=== PATIENT | female | born 1945 | race Two or more races ===

== ENCOUNTER → 2018-05-20 18:44 | Outpatient (CLI) | payer MEDICARE, SELFPAY ==
--- OUTSIDE RECORDS SUMMARY | 2018-07-02 16:51 | XMS RPT_ITS ---
:1945 Author Organization OHIP Care Team Providers Name Role Phone Stencel, Tootie Attending Unavailable [facility] Unavailable Stencel, Tootie Admitting Unavailable Furness, Prosper T Attending Unavailable Manning, Rye Primary Care Unavailable [facility], [facility] Primary Care Unavailable Furness, Prosper Jackson Admitting Unavailable Furness, Prosper T Attending Unavailable Stencel, Tootie Attending Unavailable Manning, Rye Primary Care Unavailable Stencel, Tootie Admitting Unavailable Stencel, Tootie Attending Unavailable Stencel, Tootie Primary Care Unavailable Stencel, Tootie Attending Unavailable Manning, [facility] Primary Care Unavailable Wood, Lisbeth L Attending Unavailable Wood, Lisbeth L Admitting Unavailable Stencel, Tootie Primary Care Unavailable Stencel, Tootie Admitting Unavailable Stencel, Tootie Attending Unavailable Stencel, Tootie Primary Care Unavailable Stencel, Tootie Primary Care Unavailable Wood, Lisbeth L Admitting Unavailable Wood, Lisbeth L Attending Unavailable NakulAshtyn Attending Unavailable NakulAshtyn Referring Unavailable STENCEL, TOOTIE Primary Care Unavailable PROBLEMS PROBLEMS DATE TYPE CONDITION / CODE ATTENDING STATUS SOURCE 03/23/2018 Admitting Dysuria / NA Active [facility] R30.0(ICD-10[facility] [place] 03/23/2018 Admitting Unspecified NA Active [facility]oids / [place] K64.9(ICD-10) Repository 03/23/2018 Admitting Hypokalemia / NA [facility] Diagnosis E87.6(ICD-10) [place] PROCEDURES PROCEDURES No Procedure Records FoundRESULTS RESULTS Observed: 05/20/2018 Status: F Source: MICHAEL CULTURE, URINE 11:15 AM [facility] [place] Urine Culture Below infection level. ORGANISM 1: Mixed Gram Positive Organisms [place] Count 1000-10,000 Performed By: #### M100.0650 #### Michael [facility] [place], [address] CT ABDOMEN/PELVIS WITHOUT Observed: 03/23/2018 Status: F Source: [employer] CONTRAST 12:16 PM SYSTEM ([place]) REPOSITORY EXAM: CT ABDOMEN/PELVIS WITHOUT CONTRAST CLINICAL INDICATION: Painful urination TECHNIQUE: Unenhanced noncontrasted CT of the abdomen and pelvis with multiple sequential images obtained along the axial plane at 3.0 mm slice width from the level of the lung bases through to the pubic symphysis under urolithiasis protocol. Images were reconstructed and assessed in the coronal plane. Dose reduction techniques were achieved by using automated exposure control and/or adjustment of mA and/or kV according to patient size and/or use of iterative reconstruction technique. COMPARISON STUDY: None Dose reduction techniques were achieved by using automated exposure control and/or adjustment of mA and/or kV according to patient size and/or use of iterative reconstruction technique. FINDINGS: Evaluation of visceral organs is limited secondary to lack of intravenous contrast. Lung bases demonstrate lingular and right middle lobe atelectasis or minimal infiltrate. Linear scarring within the bilateral lung bases. No effusions. Small hiatal hernia. The kidneys are within normal limits with no evidence of hydronephrosis, hydroureter, or perinephric stranding. No pathological calcifications are identified within the kidneys or ureters. The bladder is within normal limits with no evidence of calculi. There is no evidence of intraperitoneal free air. The liver, gallbladder, spleen, and pancreas are within normal limits with no evidence of gross focal lesions. The adrenal glands are within normal limits with no evidence of mass lesions. The small intestine and colon are of normal caliber and are nonobstructive. There is no evidence of inflammatory changes around the bowel loops. Few scattered colonic diverticula but no CT evidence for acute diverticulitis. The appendix is not positively identified, however, there is no evidence for pericecal inflammatory changes identified to suggest acute appendicitis. Suspect hysterectomy changes. No pelvic free fluid is identified. The abdominal aorta is of normal caliber with no evidence of aneurysm. IMPRESSION: 1. No evidence of urolithiasis - no evidence of hydronephrosis/hydroureter/perinephric stranding. 2. Colonic diverticulosis but no CT evidence for acute radiculitis. 3. Suspect prior hysterectomy. 4. Minimal lingular and right middle lobe atelectasis or infiltrate. CBC Collected: 03/23/2018 Status: F Source: [employer] 12:04 PM [place] ([place] REPOS[place] TYPE CODE TESTS RESULT OUT OF REFERENCE UNITS RANGE LAB WBC 3.6-11.0 /cmm WBC COUNT 8.9 LAB RBC 4.0-5.4 /cmm RBC COUNT 4.55 LAB HGB 12.0-16.0 G/DL HEMOGLOBIN 14.1 LAB HCT 36.0-48.0 % HEMATOCRIT 41.5 LAB MCV 80.0-100.0 FL MCV 91.2 LAB MCH 26.0-35.0 PG MCH 31.0 LAB MCHC 27.0-37.0 G/DL MCHC 34.0 LAB RDW 11.5-14.5 % RDW 13.1 LAB PLTC 130.0-400.0 /cmm PLATELET COUNT 331 LAB MPV 7.4-11.0 FL MPV 7.5 LAB DTYPE % DTYPE AUTO DIFF LAB NEUT 37.0-75.0 % High NEUTROPHIL 82.3 LAB LYMP 20.0-55.0 % Low LYMPHOCYTE 11.0 LAB AOMONO 0.0-10.0 % MONOCYTE 4.8 LAB EOS 0.0-11.0 % EOSINOPHIL 1.4 LAB BASO 0.0-2.0 % BASOPHIL 0.5 LAB ANC 1.0-7.0 x10 ABSOLUTE High NEUTROPHIL COUNT 7.3 LAB ALYM X10 ABSOLUTE LYMPHOCYTE 1.00 LAB AMONO X10 ABSOLUTE MONOCYTE 0.4 LAB AEO X10 ABSOLUTE EOS 0.10 LAB ABAS X10 ABSOLUTE BAS 0.0 Performed By: #### CMPF, PT, ACBC #### Testing performed at [address] [address] CMP FASTING Collected: 03/23/2018 Status: F Source: [facility] 12:04 PM [place] TYPE CODE TESTS RESULT OUT OF REFERENCE UNITS RANGE LAB GLF 70-100 MG/DL High GLUCOSE 114 FASTING Result Comment: NORMAL <100 mg/dL PREDIABETES 101-126 mg/dL DIABETES 126 mg/dL or higher LAB BUN 7-20 MG/DL BLOOD UREA 11 NITROGEN LAB CRET 0.52-1.04 MG/DL CREATININE SERUM 0.9 LAB NA 136-145 MMOL/L SODIUM 136 LAB K 3.5-5.1 MMOL/L POTASSIUM Low 3.0 LAB CL 98-107 MMOL/L CHLORIDE 99 LAB CA 8.4-10.2 MG/DL CALCIUM 9.9 LAB TP 6.3-8.2 GM/DL TOTAL PROTEIN 7.5 LAB ALB 3.5-5.0 G/dl ALBUMIN 4.5 LAB TBIL 0.2-1.2 MG/DL BILIRUBIN TOTAL 0.8 LAB AST 15-41 IU/L AST 25 LAB ALKP 38-126 IU/L ALK 91 PHOSPHATASE LAB CO2 22-30 MMOL/L CO2 29 LAB AG 1.3-2.2 RATIO A:G RATIO 1.5 LAB ALT 14-54 IU/L ALT 18 LAB GFR ml/min/1.73 sq.m EST. GFR,Non >60 LAB GFRB ml/min/1.73 sq.m EST. GFR, >60 Nigerian LAB GFRCOM GFR Information Average GFR for 70+ years old = 75. Result Comment: Chronic Kidney disease, GFR = <60. Kidney failure, GFR = <15. The GFR estimate is not adjusted for extreme body surface area or acute process, nor has it been validated for women or ethnic groups other than and . Performed By: #### CMPF, PT, ACBC #### Testing performed at [address] [address] PROTIME Collected: 03/23/2018 Status: F Source: [employer] 12:04 PM [place] TYPE CODE TESTS RESULT OUT OF REFERENCE UNITS RANGE LAB PT1 11.6-14.0 SEC PROTIME 12.4 LAB INR 0.88-1.12 INR 0.93 Result Comment: 2.0-3.0 THERAPEUTIC RANGE 2.5-3.5 PROSTHETIC VALVE RANGE Performed By: #### CMPF, PT, ACBC #### Testing performed at [address] [address] URINE MACROSCOPIC Collected: 03/23/2018 Status: F Source: [employer] 11:43 AM [place] TYPE CODE TESTS RESULT OUT OF RANGE REFERENCE UNITS LAB UCOL YELLOW URINE COLOR YELLOW LAB [facility] CLEAR URINE CLARITY CLEAR LAB USPG 1.010-1.025 Low URINE SPEC GRAVITY <1.005 LAB UPH 5.0-7.0 URINE PH 6.5 LAB AUTP NEGATIVE mg/dl URINE TOTAL PROTEIN NEGATIVE LAB UGL NEGATIVE mg/dl URINE GLUCOSE NEGATIVE LAB UKET NEGATIVE mg/dl URINE KETONE NEGATIVE LAB UBIL NEGATIVE URINE BILIRUBIN NEGATIVE LAB UHGB NEGATIVE URINE Abnormal HEMOGLOBIN MODERATE LAB UNIT NEGATIVE URINE NITRATES NEGATIVE LAB UROB 0.2-1.0 mg/dl URINE UROBILINOGEN 0.2 LAB ULEUK NEGATIVE URINE Abnormal LEUKOTEST TRACE Performed By: #### MXAX MILIANAC #### Testing performed at [place] [id number] URINE MICROSCOPIC Collected: 03/23/2018 Status: F Source: [facility] 11:43 AM [place] RE[place] TYPE CODE TESTS RESULT OUT OF RANGE REFERENCE UNITS LAB UWBC NEGATIVE /HPF URINE 1 WBC'S TO 5 LAB URBC NEGATIVE /HPF URINE 1 RBC'S TO 5 LAB EPI /HPF EPITHELIAL NONE CELLS LAB MUCUS NEGATIVE MUCUS NEGATIVE LAB BACT NEGATIVE Abnormal BACTERIA TRACE LAB SHERINE NONE CRYSTAL NONE LAB CASTS NONE /LPF CASTS NONE LAB UCOM URINE COMMENT PHYSICIAN REQUESTED CULTURE Performed By: #### JONNY MILIAN #### [place] [address] Observed: 03/23/2018 Status: F Source: [facility] URINE CULTURE 11:43 AM [place] REPOS[place] SPECIMEN DESCRIPTION URINE CLEAN CATCH UA DIPSTICK NITRITE NEGATIVE * Result Note: LEUKOCYTE POSITIVE * CULTURE NO PATHOGENS ISOLATED * Result Note: Testing performed at [place] [address] * REPORT STATUS 03/25/2018 * Result Note: FINAL * Performed By: #### AURNC #### [place] [address] [place] [address] ALLERGIES ALLERGIES DATE TYPE / NAME / CODE REACTION SEVERITY SOURCE CODE Drug/72664 doxycycline [id number] [facility]) System Repository Drug/79704 amoxicillin [id number] [facility]) System Repository Drug/33610 hydrocortisone [id number] [facility]) System Repository Drug/12366 sulfa drugs [id number] [facility]) System Repository Drug/49698 Bactrim [id number] [facility]) System Repository Drug/77852 Benadryl [id number] [facility] 1003([facility]) System Repository Drug/09081 Macrobid [id number] [facility] 1003([facility]) System Repository Drug/63555 EPINEPHrine [id number] [facility] 1003([facility]) System Repository ENCOUNTERS ENCOUNTERS ADMIT/DISCHARGE ACCOUNT NUMBER ADMITTING ENCOUNTER LOCATION SOURCE CLASS 05/20/2018 [id number] [facility] ing:LABSPEC Repository 05/13/2018/05/13/20 [id number] [facility] [address] [place], [place] [address]Building: Repository [facility] 05/01/2018 [id number] [facility] [place] ing:[id number] [facility] 8309 Repository 05/01/2018 [id number] [facility] 04/29/2018/04/29/20 [id number] [facility] [address] [place], [place] [address]Building: Repository Med AssocRoom: Room 2 03/26/2018/03/26/20 [id number] [facility] [address] [place], [place] [address]Building: Repository Med AssocRoom: Room 2 03/23/2018/03/23/[id number] [facility] [place] [address] Room: System ([place]) J827Gqp: E001 Repository 01/15/2018/01/16/20 [id number] Mark, [facility]oc[facility]: Room 1 07/18/2017/07/18/19 [id number] Stencel, [facility] [place] 07/04/2017/07/04/19 [id number] Kamilla, [facility] [address] [facility]ocRoom: Procedure 06/13/2017/06/13/20 [id number] [facility] [place] PAYERS PAYERS ENCOUNTER GUARANTOR PAYER SUBSCRIBER SOURCE 05/20/2018 TONO Tomlin Primary TONO [place] [id number] Insurance:HUMANA ORMISTONDOB: Community [place] MEDICARE [place]olicy [id number]: Repository [id number]: [phone] [id number] [phone] (HP) Date:[id number] [address] [place] [id number]: 05/20/2018 Secondary NOT GIVENUNK Michael Insurance:SELF PAY [facility] Number: Effective Repository Date:2018-05-20 05/13/2018 TONO Tomlin Primary TONO Zuniga ORMISTONDOB: Insurance:1500 HUMANA ORMISTONDOB: [facility] CHOICE MEDICAREPolicy [id number] System [facility] Number: Effective [facility] Repository [place], [place] Date:2018-05-13 - [place] [address]Pyb: [id number] [address]Evi: Name:CD:[id number] (HP) [address] [place] [address] ()Tel: [phone]: (WP) [phone] 05/01/2018 TONO Tomlin Primary TONO Zuniga ORMIJAZMINDOB: Insurance:HUMANAPolic ORMISTONDOB: [facility] y Number: Effective [id number] System [place] Date:2018-05-01 - [place] Repository [place] [id number] [place] [id number]: Name:CD:[id number] [facility] [address]Zkn: [address] [place] [address] (HP) [phone]: [phone] (HP) [phone] (WP) 05/01/2018 TONO L Primary TONO GRAFFB: Insurance:1500 [facility]MANA [facility] CHOICE MEDICAREPolicy [id number] System [facility] Number: Effective [facility] Repository [place], [place]:2018-01-15 [place] [address]Scs: [id number] [address]Glp: Name:CD:[id number] (HP) [address] [place] [address] (HP)Tel: [phone]: (WP) [phone] 04/29/2018 TONO Tomlin Primary TONO GRAFFB: Insurance:1500 HUMANA [facility] CHOICE MEDICAREPolicy [id number] System [facility] Number: Effective [facility] Repository [place], [place] Date:2018-04-29 - [place] [address]Gpm: [id number] [address]Kdb: Name:CD:[id number] (HP) [address] [place] [address] ()Tel: [phone]) [phone]: (WP) [phone] 03/26/2018 TONO Tomlin Primary TONO GRAFFB: Insurance:1500 HUMANA [facility] CHOICE MEDICAREPolicy [id number] System [facility] Number: Effective [facility] Repository [place], [place] Date:2018-03-26 - [place] [address]Efa: [id number] [address]Hvw: Name:CD:[id number] (HP) [address] [place] [address] (HP)Tel: [phone]: (WP) [phone] 01/15/2018 TONO Sada Primary TONO GRAFFB: Insurance:1500 [facility] CHOICE MEDICAREPolicy [id number] System [facility] Number: Effective [facility] [place] Date:2017-07-18 [facility] [place] [address]Ejs: [id number] [address]Xbr: Name:CD:[id number] (HP) [address] [place] [address] ()Tel: [phone]: [phone] 07/18/2017 TONO Tomlin Primary TONO GRAFFB: Insurance:1500 [facility]: [facility] CHOICE MEDICAREPolicy [id number] System [facility] Number: Effective [place] Repository [place] Date:2017-01-15 - [place] [id number]: [id number] [id number]: Name:CD:[id number] (HP) [address] [place] [address] ()Tel: [phone]: [phone] 07/04/2017 TONO Tomlin Primary TONO GRAFFB: Insurance:1500 HUMANA [facility] CHOICE MEDICAREPolicy [id number] System [facility] Number: Effective [facility] Repository [place], [place] Date:2017-06-13 - [facility] [place] [id number]: [id number] [id number]: Name:CD:[id number] (HP) [address] [place] [address] (HP)Tel: [phone]) [phone]: (wp) [phone] 06/13/2017 TONO Tomlin Primary TONO Tomlin [facility]1500 [facility]: [facility] CHOICE MEDICAREPolicy [id number] System [place] Number: Effective [place] Date:2017[place]11 [place] [id number]: [id number] [id number]: Name:CD:[id number] () [id number] [place] [address] ()Tel: [phone]: (wp) [phone]
== END ==
PROVIDERS: Family Provider Family Medicine; PCP Family Medicine; Referring Provider Nurse Practitioner Adult Health; Visit Provider Nurse Practitioner Adult Health
DX: N30.20 Other chronic cystitis without hematuria (principal)
CPT/HCPCS: 87086; 87088

== ENCOUNTER → 2018-07-31 13:06 | Outpatient (CLI) | payer MEDICARE, SELFPAY ==
[2018-07-31 13:36] LABS: Bacteria 0 SEEN /hpf (None Seen); Mucous, Urine 0 SEEN /hpf (<or=2+); Squamous Epithelial Cells - UA 0 SEEN /hpf (5-10)
[2018-07-31 13:53] LABS: Color, Urine Yellow (Yellow); Glucose, Dipstick Normal (Normal); Ketone-Dipstick Negative (Negative); Leukocyte Esterase-Dipstick 25 /ul (Negative); Nitrite-Dipstick Negative (Negative); Occult Blood-Urine 25 /ul (Negative); Protein-Dipstick Negative (Negative); Specific Gravity, Urine 1.005 (1.002-1.030); Urine Bilirubin Dipstick Negative (Negative); Urine Clarity Clear (Clear); Urine Urobilinogen Normal (Normal)
[2018-07-31 14:03] LABS: Red Blood Cells-Urine 0-5 SEEN /hpf (0-5); White Blood Cells 0-5 SEEN /hpf (0-5)
== END ==
PROVIDERS: Family Provider Family Medicine; PCP Family Medicine; Referring Provider Nurse Practitioner Adult Health; Visit Provider Nurse Practitioner Adult Health
DX: R31.29 Other microscopic hematuria (principal)
CPT/HCPCS: 81001